=== PATIENT | female | born 1970 | race Two or more races ===

== ENCOUNTER 2023-05-14 14:53 | Inpatient (IN) | payer OTHER ==
[~2023-05-14] VITALS: Ht 157.5 cm; Wt 56.2 kg
[2023-05-21] MEDS ORDERED: TRAM1TAB98 PO (08:35)
[2023-05-21] MEDS ORDERED: PEPCID20 MG PO (08:35)
== END 2023-05-21 13:24 | disposition home or self-care (01) | DRG 743 ==
LOC: SURG 05-20 06:33 → O/R 05-20 06:33 → SURH 05-20 09:30 → SURG 05-20 12:20 → SURH 05-20 14:45 → SURG 05-21 13:24
PROVIDERS: ADMIT Obstetrics & Gynecology; ATTEND Obstetrics & Gynecology
PROC: 0UT7FZZ Resection of Bilateral Fallopian Tubes, Via Natural or Artificial Opening With Percutaneous Endoscopic Assistance (ICD-10-PCS; 2023-05-20)
PROC: 0TJB8ZZ Inspection of Bladder, Via Natural or Artificial Opening Endoscopic (ICD-10-PCS; 2023-05-20)
PROC: 0UT9FZZ Resection of Uterus, Via Natural or Artificial Opening With Percutaneous Endoscopic Assistance (ICD-10-PCS; principal; 2023-05-20 14:45)
DX: D25.1 Intramural leiomyoma of uterus (principal); D25.2 Subserosal leiomyoma of uterus; D25.0 Submucous leiomyoma of uterus; N84.0 Polyp of corpus uteri; N80.03 Adenomyosis of the uterus; N72 Inflammatory disease of cervix uteri; Z20.822 Contact with and (suspected) exposure to COVID-19; N92.1 Excessive and frequent menstruation with irregular cycle